=== PATIENT | male | born 1975 | race African-American/Black ===

== ENCOUNTER 2017-04-02 02:23 | Emergency (ER) | payer MEDICAID ==
[~2017-04-02] VITALS: Ht 182.9 cm; Wt 90.7 kg
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
--- NOTE | 2017-04-02 02:36 | NUR ---
DR. MA AT BEDSIDE FOR EVAL.
--- NOTE | 2017-04-02 02:38 | NUR ---
CALLED [employer]
[2017-04-02] MEDS ORDERED: TDAP [DIPH/PERTUSSIS/TET] 0.5 ML VIAL IM ONE ×2 (02:42→03:00)
[2017-04-02] MEDS ORDERED: HYDROCODONE/APAP 5/325MG 1 EACH TABLET ONE (02:42)
--- NOTE | 2017-04-02 02:48 | NUR ---
RADIOLOGY AT BEDSIDE FOR CXR
[2017-04-02] MEDS ORDERED: HYDROCODONE/APAP 5/325MG 1 EACH TABLET PO ONE (03:00)
--- NOTE | 2017-04-02 03:45 | NUR ---
CALLED [facility] FOR PENDING XR RESULTS. PER [facility] TO BE READ.
--- NOTE | 2017-04-02 04:10 | NUR ---
RADIOLOGY AT BEDSIDE FOR FINGER XRAY
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
--- NOTE | 2017-04-02 05:05 | NUR ---
DR. MA SPEAKING TO PT REGARDING RESULTS
--- NOTE | 2017-04-02 05:14 | NUR ---
Patient discharged to home in stable condition. Written and verbal after care instructions given. Patient verbalizes understanding of instruction. ambulatory with a steady gait with crutches. pt instructed not to drive. pt verbalize understanding.
[2017-04-02 05:15] VITALS: BP 118/68
== END 2017-04-02 05:15 | disposition home or self-care (01) ==
LOC: ER 02:25
DX: S93.601A Unspecified sprain of right foot, initial encounter (principal); S60.419A Abrasion of unspecified finger, initial encounter; S60.410A Abrasion of right index finger, initial encounter; S60.412A Abrasion of right middle finger, initial encounter; M65.331 Trigger finger, right middle finger; Y04.0XXA Assault by unarmed brawl or fight, initial encounter; Y93.89 Activity, other specified; Y92.89 Other specified places as the place of occurrence of the external cause; Y99.9 Unspecified external cause status
CPT/HCPCS: 73130-TC; 73140-TC; 73630-TC; 90715; A4606; A6403; Z7610